=== PATIENT | female | born 1965 | race Caucasian/White ===

== ENCOUNTER → 2017-02-09 | Outpatient (CLI) | payer BC ==
--- NOTE | 2017-02-09 09:44 | MM ---
Reason for exam: follow-up at short interval from prior study. Last mammogram was performed 3 months ago. History: Family history of breast cancer in mother. Benign ultrasound-guided core biopsy of the left breast, 2016. Took hormonal contraceptives for 10 years. Physical Findings: Patient refused breast exam. MG 3D Diag Mammo W/Cad LT CC and MLO view(s) were taken of the left breast. Prior study comparison: November 19, 2016, mammogram. August 23, 2015, mammogram. The breast tissue is heterogeneously dense. This may lower the sensitivity of mammography. Previous mammotome biopsy in the right breast. There is chronic nodularity in the left breast. There is no discrete abnormality. These results were verbally communicated with the patient and result sheet given to the patient on 02/09/17. ASSESSMENT: Incomplete: need additional imaging evaluation, BI-RAD 0 RECOMMENDATION: Ultrasound of the left breast.
--- NOTE | 2017-02-09 09:49 | USB ---
Reason for exam: additional evaluation requested from abnormal screening. History: Family history of breast cancer in mother. Benign ultrasound-guided core biopsy of the left breast, 2016. Took hormonal contraceptives for 10 years. US Breast LT Left breast ultrasound includes all four quadrants, the retroareolar region and axilla. Finding demonstrates a 0.6 x 0.5 x 0.6cm cystic lesion at 12 o'clock, a 2.5 x 0.9 x 0.3cm cystic lesion at 1 o'clock, a 0.5 x 0.2 x 0.5cm lesion too small to characterize at 2 o'clock, a 0.3 x 0.2 x 0.3cm lesion too small to characteize at 3 o'clock and a 4.7 x 0.17 x 4.9cm stable but suspicious nodule at 6 o'clock versus 0.43 x 0.39 x 0.30cm. These results were verbally communicated with the patient and result sheet given to the patient on 02/09/17. ASSESSMENT: Suspicious, BI-RAD 4 RECOMMENDATION: Ultrasound FNA + core biopsy of the left breast. (vascular nodule in large cyst) Called with mammographic findings and has scheduled an appointment for the patient for 02/12/17 at 9:[address] Cordon. PRELIMINARY REPORT CALLED AND FAXED TO DR. CORDON ON 02/09/17. [facility]
== END | disposition home or self-care (01) ==
LOC: RADMAMWWP 07:38
PROVIDERS: ATTEND Surgery
DX: R92.8 Other abnormal and inconclusive findings on diagnostic imaging of breast (principal)
CPT/HCPCS: 76641; G0206; G0279

== ENCOUNTER → 2017-06-12 | Outpatient (CLI) | payer BC ==
[2017-06-12 20:09] LABS: Basophils % (A) 1 %; Eosinophils # (A) 0.2 k/uL (0-0.7); Eosinophils % (A) 3 %; HGB 14.5 gm/dL (11.4-16.0); Lymphocytes # (A) 1.4 k/uL (1.0-4.8); Lymphocytes % (A) 25 %; MCHC 32.1 g/dL (31.0-37.0); MCV 90.2 fL (80.0-100.0); Mean Platelet Volume 7.9; Monocytes # (A) 0.3 k/uL (0-1.0); Monocytes % (A) 5 %; Neutrophils # (A) 3.7 k/uL (1.3-7.7); Neutrophils % (A) 65 %; Platelet Count 280 k/uL (150-450); RBC 4.99 m/uL (3.80-5.40); RDW 14.1 % (11.5-15.5); WBC 5.7 k/uL (3.8-10.6)
[2017-06-12 20:15] LABS: ALT 35 U/L (9-52); AST 30 U/L (14-36); Alkaline Phosphatase 75 U/L (38-126); Anion Gap 9 mmol/L; Blood Urea Nitrogen 17 mg/dL (7-17); Calcium 9.5 mg/dL (8.4-10.2); Carbon Dioxide 29 mmol/L (22-30); Chloride 103 mmol/L (98-107); Cholesterol 132 mg/dL (<200); Glucose 83 mg/dL (74-99); HDL Cholesterol 51 mg/dL (40-60); LDL Cholesterol,Calculated 73 mg/dL (0-99); Potassium 4.1 mmol/L (3.5-5.1); Sodium 141 mmol/L (137-145); Total Protein 6.8 g/dL (6.3-8.2); Triglycerides 41 mg/dL (<150)
[2017-06-12 20:29] LABS: T4, Free (Free Thyroxine) 1.24 ng/dL (0.78-2.19)
== END | disposition home or self-care (01) ==
LOC: MMGSC 13:38
PROVIDERS: ATTEND Family Medicine
DX: Z00.00 Encounter for general adult medical examination without abnormal findings (principal)
CPT/HCPCS: 36415; 80053; 80061; 84439; 84443; 85025

== ENCOUNTER → 2017-09-15 | Outpatient (CLI) | payer BC ==
--- NOTE | 2017-09-15 10:55 | MM ---
Reason for exam: follow-up at short interval from prior study. Last mammogram was performed 7 months ago. History: Family history of breast cancer in mother. Benign MG pre op needle loc LT of the left breast, March 17, 2017. Benign US breast aspiration single LT of the left breast, February 18, 2017. Benign US biopsy breast VAD LT of the left breast, February 18, 2017. Benign ultrasound-guided core biopsy of the left breast, 2016. Took hormonal contraceptives for 10 years. Physical Findings: Nurse Summary: 4cm nodule in the left breast at 1-2 o'clock (nurse dw). MG 3D Diag Mammo W/Cad LT CC, MLO, and LM view(s) were taken of the left breast. Prior study comparison: February 18, 2017, left breast MG diagnostic mammo LT wo CAD. February 09, 2017, left breast MG 3d diag mammo w/cad LT. The breast tissue is heterogeneously dense. This may lower the sensitivity of mammography. Interval surgical excisional changes 6 o'clock left breast. Circumscribed mass 1 o'clock left breast corresponds to a palpable area and has slightly enlarged to 3.7cm versus 3.3cm previously. Shown to be a benign cyst on prior ultrasound. Patient's annual exam can be performed in diagnostic clinic. These results were verbally communicated with the patient and result sheet given to the patient on 09/15/17. ASSESSMENT: Probably benign, BI-RAD 3 RECOMMENDATION: Follow-up diagnostic mammogram of both breasts in 5 months. Back on schedule. KEVIN
== END | disposition home or self-care (01) ==
LOC: RADMAMWWP 09:39
PROVIDERS: ATTEND Surgery
DX: R92.8 Other abnormal and inconclusive findings on diagnostic imaging of breast (principal)
CPT/HCPCS: 77061; 77065

== ENCOUNTER → 2018-02-15 | Outpatient (CLI) | payer BC ==
--- NOTE | 2018-02-15 10:41 | MM ---
Reason for exam: additional evaluation requested from prior study. Last mammogram was performed 5 months ago. History: Family history of breast cancer in mother. Benign MG pre op needle loc LT of the left breast, March 17, 2017. Benign US breast aspiration single LT of the left breast, February 18, 2017. Benign US biopsy breast VAD LT of the left breast, February 18, 2017. Benign ultrasound-guided core biopsy of the left breast, 2016. Took hormonal contraceptives for 10 years. Physical Findings: Nurse Summary: 1cm nodule in the left breast at 2 o'clock (nurse dw). MG 3D Diag Mammo W/Cad EDUARDO Bilateral CC and MLO view(s) were taken. Prior study comparison: September 15, 2017, left breast MG 3d diag mammo w/cad LT. February 18, 2017, left breast MG diagnostic mammo LT wo CAD. The breast tissue is heterogeneously dense. This may lower the sensitivity of mammography. There is a large mass similar to priors on the left with similar smaller adjacent well circumscribed stable masses. No suspicious abnormality. Post operative change on the left. These results were verbally communicated with the patient and result sheet given to the patient on 02/15/18. ASSESSMENT: Benign, BI-RAD 2 RECOMMENDATION: Routine screening mammogram of both breasts in 1 year.
== END | disposition home or self-care (01) ==
LOC: RADMAMWWP 09:31
PROVIDERS: ATTEND Obstetrics & Gynecology
DX: R92.8 Other abnormal and inconclusive findings on diagnostic imaging of breast (principal)
CPT/HCPCS: 77062; 77066

== ENCOUNTER → 2018-10-08 | Outpatient (CLI) | payer BC ==
[2018-10-08 15:07] VITALS: BP 163/71; PULSE 68; RESP 16; TEMP 98.1; BMI 23.3
--- NOTE | 2018-10-08 15:47 | P.GSHP ---
History of Present Illness H&P Date: 10/08/18 Chief Complaint: left breast mass Valerie is a 53-year-old white female who presents with a palpable mass in her left breast. The mass has been present that she knows of for at least a month. The patient in the past has had multiple cysts drained in her breasts. She had a mammogram from 2016 which revealed a lesion in the left breast in the upper outer quadrant area was on ultrasound scan felt to be consistent with a benign most likely cystic area. She in 2017 had a bilateral mammogram which again showed a lesion in the left breast in the upper outer quadrant most likely felt to be benign. The patient then felt the mass herself in September 2018 and a repeat mammogram again revealed a 4.1 cm high density lesion 1.6 cm from the nipple in the upper outer quadrant of the left breast. An ultrasound confirmed that there was a cystic lesion at this site. She has had 2 open biopsies on the left breast which have been benign. She has not had any biopsies on the right breast. She does not drink much caffeine. She does not smoke. She is not exposed to secondhand smoke. She eats a small quantity of chocolate several times a week. She does not take any hormones at this time. The patient had an ultrasound core biopsy in February 2017 which revealed an intraductal papilloma, she then underwent a needle local excisional biopsy in March 2017 which revealed fibrocystic change. Family History: 1. mother: breast cancer 80's 2. father: skin cancer 3. paternal grandfather: skin cancer Hormonal history: Menarche:12 , first born at 20, breast fed: yes menopause: ablation done at 48 BCP: 3 years hormones: none Past surgical history: 1. Breast biopsy left breast 2 2. 3 C-sections 3. Hemorrhoidectomy 4. Uterine ablation Past medical history: none Social history: Smoke: Negative Alcohol: Negative Drugs: Negative - Constitutional Constitutional: Denies chills, Denies fever - EENT Eyes: denies blurred vision, denies pain Ears: deny: decreased hearing, tinnitus Ears, nose, mouth and throat: Denies headache, Denies sore throat - Breasts Breasts: bilateral: as per HPI - Cardiovascular Cardiovascular: Denies chest pain, Denies shortness of breath - Respiratory Respiratory: Denies cough, Denies 7 - Gastrointestinal Gastrointestinal: Denies abdominal pain, Denies diarrhea, Denies nausea, Denies vomiting - Genitourinary (Female) Genitourinary: Denies dysuria, Denies hematuria - Menstruation Comment: Uterine ablation - Musculoskeletal Comment: ? arthritis - Integumentary Integumentary: Denies pruritus, Denies rash - Neurological Neurological: Reports numbness, Reports weakness - Psychiatric Psychiatric: Denies anxiety, Denies depression - Endocrine Endocrine: Denies fatigue, Denies weight change - Hematologic/Lymphatic Comment: none - Allergic/Immunologic Allergic/Immunologic: Reports seasonal allergies Past Medical History Past Medical History: No Reported History Additional Past Medical History / Comment(s): RECTAL BLEEDING History of Any Multi-Drug Resistant Organisms: None Reported Past Surgical History: Breast Surgery, Section, Uterine Ablation Additional Past Surgical History / Comment(s): C SECTION X3, BREAST BIOPSY,COLPOSCOPY; COLONOSCOPY Past Anesthesia/Blood Transfusion Reactions: Motion Sickness Past Psychological History: No Psychological Hx Reported Smoking Status: Former smoker Past Alcohol Use History: Rare Additional Past Alcohol Use History / Comment(s): QUIT SMOKING 1985, STARTED AT AGE 16 Past Drug Use History: None Reported - Past Family History Mother Family Medical History: Cancer Father Family Medical History: Deep Vein Thrombosis (DVT), Pulmonary Embolus Medications and Allergies Home Medications Medication Instructions Recorded Confirmed Type Cholecalciferol (Vitamin D3) 2,000 unit PO 10/08/18 History [Vitamin D3] Multivitamin [Multivitamins Adult 1 each PO 10/08/18 History Gummies] Allergies Allergy/AdvReac Type Severity Reaction Status Date / Time No Known Allergies Allergy Verified 10/08/18 15:03 Surgical - Exam Vital Signs Temp Pulse Resp BP Pulse Ox 98.1 F 68 16 163/71 100 10/08/18 15:03 10/08/18 15:03 10/08/18 15:03 10/08/18 15:03 10/08/18 15:03 BMI 23.4 - General well developed, well nourished, no distress - Eyes normal ocular movement - ENT normal pinna, no hearing loss - Neck no masses, trachea midline - Respiratory normal respiratory effort, clear to auscultation - Cardiovascular Rhythm: regular Heart Sounds: normal: S1, S2 - Abdomen Abdomen: soft, non tender, no guarding, no rigid, no rebound - Integumentary normal turgor - Neurologic no disoriented, no combative - Musculoskeletal normal gait, normal posture - Psychiatric oriented to time, oriented to person, oriented to place, speech is normal, memory intact Breast exam: right breast: Multi-positional exam fibrocystic changes, no dominant masses or nodules of concern Right axilla: No adenopathy of concern Left breast: Multi-positional exam fibrocystic changes, soft mass approximately 41/2 cm in size at the 12 o'clock position consistent with ultrasound findings suspect this is a cyst Left axilla: No adenopathy of concern Results Mammogram and ultrasound reports reviewed Assessment and Plan Assessment: Impression: 1. Radiographic abnormality left breast 2. Ultrasound abnormality left breast 3. Fibrocystic breast changes 4. Palpable mass left breast probable cyst 5. Family history of breast cancer/mother 6. Family history cancer/father/skin cancer 7. Early arthritis 8. Status post uterine ablation probably postmenopausal Plan: 1. Patient was given the option of aspiration of probable abnormality in the office however she would prefer to have this done via ultrasound guidance 2. Medical management of medical conditions 3. Follow-up after aspiration of lesion Cc: Dr. Gordon,
== END ==
LOC: WWCWWP 14:47
PROVIDERS: ATTEND Surgery
DX: Z53.9 Procedure and treatment not carried out, unspecified reason (principal)

== ENCOUNTER → 2018-10-28 | Day surgery (SDC) | payer BC ==
[2018-10-28 11:38] VITALS: RESP 16; BMI 22.8
[2018-10-28 12:57] VITALS: BP 123/78; PULSE 73; TEMP 97.8
--- NOTE | 2018-10-28 15:17 | USB ---
EXAMINATION TYPE: US breast aspiration single LT DATE OF EXAM: 10/28/2018 CLINICAL HISTORY: 53-year-old female [id number] BREAST LUMP. TECHNIQUE: Ultrasound guided left breast cyst aspiration. COMPARISON: 09/08/2018 FINDINGS: The procedure of ultrasound guided aspiration was explained to the patient. Benefits, alternatives, and risks were discussed. An informed consent was then obtained. The patient was placed in supine positioning for imaging and for the procedure. The large 4.6 cm while clock left breast cyst was identified. The overlying skin was prepped and draped in usual sterile fashion. Lidocaine was used as anesthetic into the skin and subcutaneous tissue up to area of concern in the 1:00 left breast. Under ultrasound guidance, an 18-gauge spinal needle was advanced into the cyst and aspiration yielded 20 mL of tannish-brown, clear fluid. The cyst collapsed completely. Following this, a ribbon clip was left at the site of aspiration. Clip was left at this site per request of Dr. Jd Perea. The aspirate was labeled and sent to the lab for cytology analysis per request of Dr. Jd Perea. The patient tolerated the procedure well without any immediate complication. The patient was kept in the radiology department for short stay after the procedure and then discharged home in stable condition. Postprocedure mammogram was deferred at this time. If there are worrisome cytology results, mammogram could be performed at that time. IMPRESSION: Successful, uncomplicated left breast cyst aspiration with clip deposited at the site of cyst which was drained completely. Cytology results to follow. Pathology Results: Benign LEFT BREAST CYST AT ONE O'CLOCK POSITION, ASPIRATION: Histiocytes with rare epithelioid cells, negative for cells cytologically diagnostic of mass lesion or malignancy. Recommendation Follow up mammogram of the left breast in 6 months. KEVIN
== END | disposition home or self-care (01) ==
LOC: RADUSWWP 11:23
PROVIDERS: ATTEND Surgery
DX: N63.22 Unspecified lump in the left breast, upper inner quadrant (principal); N60.02 Solitary cyst of left breast
CPT/HCPCS: 88108; 88305; 76942; 19000; A4648; J2001

== ENCOUNTER → 2018-11-19 | Outpatient (CLI) | payer BC ==
[2018-11-19 16:34] VITALS: BP 135/81; PULSE 90; RESP 16; TEMP 98.5; BMI 23.3
--- NOTE | 2018-11-19 16:59 | P.PN ---
Progress Note - Text Progress Note Date: 11/19/18 Valerie is a 53 year old white female status post aspirtion of a cyst in the left breast o 10-28-18. The cytology was benign. She had no complications related to the aspiration. She had complete resolution of the lesion. Exam: left breast: no hematoma or infection no residual cyst Imppression: 1. Left breast cyst aspirated Plan: 1. bilateral mammogrm and left breast ultrasound in March with exam at t time 2. follow up sooner if cyst occurs prior to appointment CC: Dr. Sofia Yu
== END ==
LOC: WWCWWP 16:25
PROVIDERS: ATTEND Surgery
DX: Z53.9 Procedure and treatment not carried out, unspecified reason (principal)

== ENCOUNTER → 2022-10-20 | Outpatient (CLI) | payer BC ==
[2022-10-20 15:04] LABS: Basophils # (A) 0.05 X 10*3/uL (0.00-0.10); Basophils % (A) 0.9 %; Eosinophils # (A) 0.21 X 10*3/uL (0.04-0.35); HCT 44.2 % (37.2-46.3); Lymphocytes # (A) 2.06 X 10*3/uL (0.90-5.00); Lymphocytes % (A) 38.8 %; MCH 28.2 pg (27.0-32.0); MCHC 31.7 d/dL (32.0-37.0); MCV 88.9 FL (80.0-97.0); Monocytes # (A) 0.39 X 10*3/uL (0.20-1.00); Monocytes % (A) 7.3 %; NRBC Per 100 WBC 0 X 10*3/uL (0.00-0.01); Neutrophils # (A) 2.59 X 10*3/uL (1.80-7.70); Neutrophils % (A) 48.8 %; Platelet Count 262 X 10*3/uL (140-440); RBC 4.97 X 10*6/uL (4.10-5.20); RDW 12.6 % (11.5-14.5); WBC 5.31 X 10*3/uL (4.50-10.00)
[2022-10-20 15:52] LABS: BUN/Creat Ratio 17.83 Ratio (12.00-20.00); Blood Urea Nitrogen 10.7 mg/dL (9.0-27.0); Chloride 105 mmol/L (96-109); Glucose 90 mg/dL (70-110); LDL Cholesterol,Calculated 99.2 mg/dL (0.0-131.0); Potassium 4.2 mmol/L (3.5-5.5); Sodium 142 mmol/L (135-145); VLDL Calculation 14.72 mg/dL (5.00-40.00)
[2022-10-20 15:53] LABS: ALT 26 U/L (8-44); AST 20 U/L (13-35); Albumin 4.6 d/dL (3.8-4.9); Alkaline Phosphatase 83 U/L (41-126); Calcium 10.1 mg/dL (8.7-10.3); Carbon Dioxide 29.5 mmol/L (21.6-31.8); Globulin 2.3 d/dL (1.6-3.3); Total Protein 6.9 d/dL (6.2-8.2)
== END | disposition home or self-care (01) ==
LOC: LABWHC1 09:50
PROVIDERS: ATTEND Family Medicine
DX: Z00.00 Encounter for general adult medical examination without abnormal findings (principal); I10 Essential (primary) hypertension
CPT/HCPCS: 36415; 80053; 80061; 83036; 84443; 85025

== ENCOUNTER → 2024-04-25 | Outpatient (CLI) | payer BC ==
--- NOTE | 2024-04-28 09:17 | MM ---
Reason for Exam: Screening (asymptomatic). Last screening mammogram was performed 12 month(s) ago. Patient History: Menarche at age 11. First Full-Term at age 20. Postmenopausal. Patient has history of breast feeding. Patient used Hormonal Contraceptives for 10 years. 2016, Benign Ultrasound-Guided Core Biopsy on the left side. 10/28/2018, Benign Cyst Aspiration on the left side. 03/17/2017, Benign Core Biopsy on the left side. 02/18/2017, Benign Cyst Aspiration on the left side. 02/18/2017, Benign Core Biopsy on the left side. Mother had breast cancer. Sister had breast cancer, age 71. Risk Values: Donna 5 year model risk: 8.6%. NCI Lifetime model risk: 36.9%. Prior Study Comparison: 11/19/2016 Screening Mammogram, Unknown. 02/09/2017 Left Diagnostic Mammogram, [facility]. 02/18/2017 Left Diagnostic Mammogram, [facility]. 09/15/2017 Left Diagnostic Mammogram, [facility]. 02/15/2018 Bilateral Diagnostic Mammogram, [facility]. 09/08/2018 Left Diagnostic Mammogram, [facility]. 03/24/2019 Bilateral Screening Mammogram, [facility]. 04/21/2023 Bilateral Screening Mammogram, [facility]. Tissue Density: There are scattered areas of fibroglandular density. Findings: Analyzed By CAD. There is no suspicious group of microcalcifications or new suspicious mass in either breast. Overall Assessment: Negative, BI-RAD 1 Management: Screening Mammogram of both breasts in 1 year. . Patient should continue monthly self-breast exams. A clinical breast exam by your physician is recommended on an annual basis. This exam should not preclude additional follow-up of suspicious palpable abnormalities. Note on Donna scores and lifetime risk: 1. A Donna score greater than 3% is considered moderate risk. If this is the case, consider specialist referral to assess eligibility for a risk reducing agent. 2. If overall lifetime risk for the development of breast cancer is 20% or higher, the patient may qualify for future screening with alternating mammogram and breast MRI. [facility], , 04/28/2024 9:14 AM. Electronically signed and approved by: Gil Mathis M.D. [facility]
== END | disposition home or self-care (01) ==
LOC: RADMAMWWP 08:18
PROVIDERS: ATTEND Obstetrics & Gynecology
DX: Z12.31 Encounter for screening mammogram for malignant neoplasm of breast (principal); Z78.0 Asymptomatic menopausal state; Z80.3 Family history of malignant neoplasm of breast; R92.323 Mammographic fibroglandular density, bilateral breasts
CPT/HCPCS: 77063; 77067